=== PATIENT | female | born 1975 | race Caucasian/White ===

== ENCOUNTER 2016-08-27 13:35 | Observation (INO) | payer OTHER ==
[2016-08-27] MEDS ORDERED: TERBUTALINE SULFATE 1 MG/ML VIAL ONE (14:13)
--- NOTE | 2016-08-27 14:54 | OBPROG ---
OBG Labor Progress Note Assessment/Plan: Assessment:cat 1 fhr regular contractions terbutaline x1 repeated x1 unable to get iv for iv fluids will po hydrate ffn negative previous exam in the office closed thick high posterior cervical length in the office 2.69 Plan:terbutaline x1 and repeat 08/27/16 14:51 Subjective: Feeling regular contractions x 4 days. Denies laking , bleeding, and cramping. States feeling positive movement. - SVE Dilation (cm): 0 Effacement (%): 0 Station: -3 Oxytocin Orders Assessment - Pre-Induction/Augmentation Assessment Gestational Age: 31 week(s) and 6 day(s) ICD10 Worksheet Patient Problems: Problems Problem Status Onset contractions Acute
--- NOTE | 2016-08-27 15:43 | GHP ---
[f rep st] HISTORY AND PHYSICAL DATE OF ADMISSION: 08/27/2016 The patient is a 41-year-old 2, term 0, pre-term 1, A 0, L1. EDC is 10/23/2016. Patient is gestational age of 31-1/7 weeks. Patient comes into the office on 08/27/2016 with the complaint of regular contractions x4 days, "I think since Wednesday." States feeling positive movement. De nies leaking or bleeding. States cramping is regular. Patient was placed on the monitor in the off ice. Contractions were noted to be 3-4 minutes apart. Speculum exam was completed. FFN was colle dennis that has since been found to be negative. Cervical length was completed by ultrasound, 2.69 cm is what was found to be true. Patient was sent to Labor and Delivery for reassessment, monitoring, terbutaline, and fluids. Patient originally started coming to [facility] at 9 weeks and 2 days and has routinely been seen. MEDICAL HISTORY: Patient is hypothyroid, has a history of anxiety, history of cystitis, and history of pyelo at the age of 29. Patient has a history of asthma and has an extremely sensitive stomach. SURGICAL HISTORY: Laser cone biopsy at age 19, tonsillectomy at age 28, tubes in the ears as a chil d. Salmonella positive at age 15. ALLERGIES: Dairy, eggs, corn, and fish. SOCIAL HISTORY: Patient is . HISTORY: Previous delivery at 34 weeks in 2008: A male, 5 pounds 1 ounce, 34-5/7 weeks, 12 hours of labor. This was a planned home . Baby was in the NICU x2 weeks. Pr esent : Patient is AMA. PAST FAMILY HISTORY: Noncontributory. LABORATORY: Patient is A positive, antibody negative. RPR is nonreactive. Rubella is immune. Hep atitis is negative. HIV is negative. Triple screen was negative. TSH on original assessment for p regnancy was 2.48 and in the 3rd trimester, 2.21. Pap was ASCUS with negative HPV. Gonorrhea and c hlamydia were negative. AFP was negative. Verifi was negative. 1-hour GTT was within normal limit s. PHYSICAL ASSESSMENT: CONSTITUTIONAL: Patient is awake, alert, and oriented x3. LUNGS: Clear bila terally. ABDOMEN: Bowel sounds are positive in all 4 quadrants. EXTREMITIES: DTRs are 1+ bilater ally and no clonus. GI: Patient is eating a regular diet. Abdomen is soft on palpation in between contractions. Contractions on admit to Labor and Delivery were every 3-5 minutes. PLAN OF CARE: 1. Continuous monitoring. 2. Terbutaline q.20 minutes x3 if needed. 3. Oral hydration. 4. Plan for return to the office Wednesday or Wednesday as long as contractions are to nothing before di scharge. 5. Consult with Dr. Dena Barnes on plan of care. Plan of care was agreed upon. /[id number]/MODL
--- NOTE | 2016-08-27 17:46 | OBPROG ---
OBG Labor Progress Note Assessment/Plan: Assessment:cat 1 fhr irrgular contractions terbutaline x3 doses ffn negative previous exam in the office closed thick high posterior cervical length in the office 2.49 Plan:fu on wednesday in the office/ clint to go home 10 mg po q8h leaking bleeding regular pain 4-6 per hour hurting with the contractions. Verbalized understanding of need to be less active no intercourse verbalized understanding 08/27/16 14:51 08/27/16 17:42 Oxytocin Orders Assessment - Pre-Induction/Augmentation Assessment Gestational Age: 31 week(s) and 6 day(s) ICD10 Worksheet Patient Problems: Problems Problem Status Onset contractions Acute
== END 2016-08-27 17:51 | disposition home or self-care (01) ==
LOC: FLD 13:35
PROVIDERS: ADMIT Obstetrics & Gynecology; ATTEND Obstetrics & Gynecology
DX: O09.213 Supervision of pregnancy with history of pre-term labor, third trimester (principal); O09.523 Supervision of elderly multigravida, third trimester; Z3A.31 31 weeks gestation of pregnancy
CPT/HCPCS: G0378 ×2; J3105

== ENCOUNTER 2016-08-31 11:30 | Inpatient (IN) | payer OTHER ==
[2016-08-31] MEDS ORDERED: MAGNESIUM SULF 4 GM/WATER 100 ML BAG IV ONE (12:01)
[2016-08-31] MEDS ORDERED: MAGNESIUM SULF 20 GM/500 ML BAG IV ONE (12:01)
[2016-08-31] MEDS ORDERED: MAGNESIUM SULF 4 GM/WATER 100 ML IV ONE (12:02)
[2016-08-31] MEDS ORDERED: CALCIUM GLUC 10% 1 GM/10 ML VIAL ONE (12:02)
[2016-08-31] MEDS: LR 1,000 ML IV PRN (12:30)
--- NOTE | 2016-08-31 12:56 | OBPROG ---
OBG Labor Progress Note Assessment/Plan: Assessment: warm with mgso4 i feel like I am having an anxiety attack reassurance given continuing to contract q 3-4 denies feeling the contractions betamethasone 1st dose given clear liquids confirmed presentation in the office with us remains breech Plan:bedside commode or bedpan for now at patient request 08/31/16 12:54 Subjective: Denies feeling contractions. Cervical us with pressure shorter. Regular contractions on the monitor to labor and delivery from the office for mgso4 and betamethasone - SVE Dilation (cm): 1 Effacement (%): 80 Station: -2 - Physical Exam General Appearance: WD/WN, alert, no apparent distress Respiratory: chest non-tender, lungs clear, normal breath sounds Cardiac/Chest: regular rate, rhythm Abdomen: normal bowel sounds Extremities: normal range of motion, Estiven's sign (negative bilaterally) DTR- Lower Extremities: Knee (L): 1+ (no clonus) Skin: normal color, warm/dry Neuro/Psych: no motor/sensory deficits, alert, normal mood/affect, oriented x 3 Oxytocin Orders Assessment - Pre-Induction/Augmentation Assessment Gestational Age: 32 week(s) and 3 day(s) ICD10 Worksheet Patient Problems: Problems Problem Status Onset contractions Acute - ICD10 Problem Qualifiers (1) contractions
[2016-08-31] MEDS ORDERED: ALBUTEROL 60 PUFFS/8 GM MDI IH PRN (12:59)
[2016-08-31] MEDS: Mag Sulf 500 ML IV SCH ×2 (13:08→20:54)
[2016-08-31] MEDS: BETAMETHASONE IM SYRINGE IM SCH (13:14)
[2016-08-31 13:46] LABS: ADD DIFF? NO; ADD MORPH? NO; ADD SCAN? NO; ATYPICAL LYMPHOCYTE FLAG 0 (0-99); FRAGMENT RBC FLAG 0 (0-99); HEMATOCRIT 42.8 % (38.0-47.0); HEMOGLOBIN 14.8 g/dL (12.6-16.3); LEFT SHIFT FLG 0 (0-99); LIPEMIA HEMOLYSIS FLAG 90 (0-99); MEAN CELL HEMOGLOBIN 32.2 pg (27.9-34.1); MEAN CELL HEMOGLOBIN CONCENTR. 34.6 g/dL (32.4-36.7); MEAN CELL VOLUME 93.2 fL (81.5-99.8); MEAN PLATELET VOLUME 11.1 fL (8.7-11.7); PLATELET CLUMPS FLAG 0 (0-99); PLATELET COUNT 256 10^3/uL (150-400); RED BLOOD CELL COUNT 4.59 10^6/uL (4.18-5.33); RED CELL DISTRIBUTION WIDTH 12.7 % (11.5-15.2)
--- NOTE | 2016-08-31 13:57 | GHP ---
[f rep st] HISTORY AND PHYSICAL ADDENDUM TO PREVIOUSLY DICTATED REPORT HISTORY UPON ADMISSION: Previous H and P dictated by nurse truck leasing manager, Darling Penny CNM, has been reviewed. HISTORY OF PRESENTATION: The patient is a 41-year-old, G2, delivery 1, with current at 32 weeks and 1 day, with an estimated due date of , who has been admitted to Labor and Delivery for steroid course of betamethasone with magnesium sulfate while administering the steroids. The patient was noted to have regular contractions in the office with cervical change from prior exam done last week. The patient does have increased risk of delivery due to her prior vaginal in 2008 at 34 weeks and 5/7 days. The ultrasound in the office today also revealed the cervical thickness down to 1.5 cm after pressure. Cervix was 1 cm dilated. On exam, there was subjective increased effacement, with lower presenting part and the contractions were staying persistent every 4-7 minutes. The patient has received an additional 2 mg bolus of magnesium, as well as the rate increased to 3 g an hour. Contractions now for several hours have been imperceptible by the patient, and decreasing frequency on the toco. The patient is having good movement. heart rate monitoring category 1. The rest of medical history is noted in the previous history and physical. History of laser cone at age 19, as well as the previous delivery at 34 weeks and 5/7 days. The patient is hypothyroid, and takes levothyroxine. Laboratory history is all normal, with blood type A positive. The patient had a GBS culture done earlier today. The fibronectin will be able to be performed tomorrow afternoon, getting 24 hours after the last cervical exam today. Physical exam is reassuring , and the patient is tolerating the magnesium sulfate at this time, with great urine output. The patient's lungs are remaining clear. The DTRs are 1+ bilaterally. ASSESSMENT: Intrauterine at 32 weeks and 1 day, with labor. The patient is on magnesium sulfate now, with improvement in the contraction pattern. Betamethasone given mid day today, and repeat dose will be tomorrow. We will continue magnesium sulfate, and after several hours of stability we will decrease the rate to 2 g an hour. PLAN: Continue current magnesium and close observation until second [facility] . I have reviewed plan of care and discussed plan with patient. Plan has been collaborated with MINH Penny /[id number] Dictated By: Aspen Li MD [id number] [facility] ORIGINAL REPORT DATE OF ADMISSION: 08/31/2016 HISTORY OF PRESENT ILLNESS: The patient is a 2, term 0, 1, A0, L1, 41-year-old with an EDC of 10/23/2016, whose gestational age is 32-1/7 weeks today, who comes into the clinic for a routine check with continued regular contractions. Denies pain. Taking Procardia q.8 hours 10 mg for contractions. Denies leaking, bleeding today on 08/31/2016. States feeling positive movement. Placed on an NST in the office and contractions were q.3-4 minutes. The patient to labor and delivery for further assessment, as well as magnesium sulfate, betamethasone. On ultrasound today, with pressure cervix was 1.3 to 1.7 cm long, without pressure 2.8 cm long. The patient has been seen in the clinic with [facility] since 9 weeks and 2 days. MEDICAL HISTORY: Patient is hypothyroid, takes levothyroxine 50 mcg p.o. q. day. History of anxiety. asthma PREG HISTORY. Previous delivery at 34-5/7 weeks in 10/2008, a male who weighed 5 pounds 1 ounce, vaginally, 12 hours. SURGICAL HISTORY: Laser cone at age 19, tonsillectomy age 28, ear tubes as a child, salmonella age 15. ALLERGIES: Allergic to dairy, eggs, and shellfish. FAMILY HISTORY: Noncontributory. SOCIAL HISTORY: Patient has 1 other child, is . Denies drug history as well as smoking history. LABORATORY DATA: Patient is A positive, antibody negative. RPR is nonreactive. Rubella is immune. Hepatitis is negative. HIV is negative. Triage screen on 04/25/2016 was negative. Thyroid has been within normal limits. Past Pap was ASCUS with negative HPV. Gonorrhea and chlamydia were negative. AFP was negative. Verifi was negative. 1-hour GTT was within normal limits. PHYSICAL EXAMINATION: GENERAL: Patient is awake, alert, oriented x3. LUNGS: Clear bilaterally. ABDOMEN: Bowel sounds are positive in all 4 quadrants. EXTREMITIES: DTRs are 1+ with no clonus. Homans sign is negative. CHEST: The patient on magnesium sulfate, is complaining of pressure on her chest during bolus of 4 g of magnesium. PLAN OF CARE: Magnesium sulfate, betamethasone. Group beta strep was done in the office. Continuous monitoring and reassessment. /[id number]/MODL MTDD
[2016-08-31] MEDS ORDERED: MAGNESIUM SULF 2 GM/WATER 50 ML BAG IV ONE (16:23)
[2016-08-31] MEDS ORDERED: MAGNESIUM SULF 2 GM/WATER 50 ML IV ONE (17:00)
--- NOTE | 2016-08-31 17:28 | OBPROG ---
OBG Labor Progress Note Assessment/Plan: Assessment: warm with mgso4/ comfort measures to assist exam /-2 with greater force from presenting part this exam/ previous exam /-2 reassurance given continuing to contract q 3-4 denies feeling the contractions 2 gm loading now / increase mainline to 3gm clear liquids joe placed drinking clear fluid 1-[address] mosley on poc allergic to betadine betadine used to place joe clear water used to clean, chlorprep used to place joe benadryl 25 mg ivp to assist with allergic reaction Plan:joe, increased base of mgso4 to 3gm, 2 gm loading again 08/31/16 12:54 08/31/16 17:23 Subjective: Continuing to feel contractions. Intermittant relaxation of uterus and then returning to q2-3 minutes Objective: 08/31/16 13:20 Patient ABO/Rh A POSITIVE 08/31/16 13:20 - SVE Dilation (cm): 1 Effacement (%): 100 Station: -2 Oxytocin Orders Assessment - Pre-Induction/Augmentation Assessment Gestational Age: 32 week(s) and 3 day(s) ICD10 Worksheet Patient Problems: Problems Problem Status Onset contractions Acute - ICD10 Problem Qualifiers (1) contractions
[2016-08-31] MEDS ORDERED: ZOLPIDEM TARTRATE 5 MG TAB PO PRN (19:48)
[2016-08-31] MEDS ORDERED: diphenhydrAMINE 25 MG CAP PO PRN (21:34)
[2016-09-01] MEDS ORDERED: ONDANSETRON 4 MG/2 ML VIAL ONE (04:05)
[2016-09-01] MEDS: ONDANSETRON 4 MG/2 ML VIAL IVP PRN ×2 (04:21→08:40)
[2016-09-01] MEDS: Mag Sulf 500 ML IV SCH (05:33)
[2016-09-01] MEDS: LR 1,000 ML IV PRN (05:35)
[2016-09-01] MEDS ORDERED: LEVOTHYROXINE 50 MCG TAB PO SCH (06:00)
[2016-09-01] MEDS: LEVOTHYROXINE 25 MCG TAB PO SCH (06:36)
--- NOTE | 2016-09-01 06:47 | OBPROG ---
OBG Labor Progress Note Assessment/Plan: Assessment: vomiting decreased urine out put 50cc most hours at 0300 30cc bolus and increase of fluids ordered at that time continuing to contract irregularly denies pain with them mgso4 decreased to 2gm per hour at 0030 mgso4 level 7.7 clear liquids decreased urine output consulted dr. mosley on poc Plan:2nd betamethasone dose today at 1300, ffn at 1630, continue mgso4 through the 2nd dose of betamethasone, increased lr to 100cc per hour, bolus of fluids one time of 250cc. , zofran for nausea and vomiting, accurate In take and output today 08/31/16 12:54 08/31/16 17:23 09/01/16 06:39 Subjective: Vomiting, noted decreased urine output, decreased ability to drink water and other po fluids. Objective: 08/31/16 13:20 Patient ABO/Rh A POSITIVE 08/31/16 13:20 Oxytocin Orders Assessment - Pre-Induction/Augmentation Assessment Gestational Age: 32 week(s) and 3 day(s) ICD10 Worksheet Patient Problems: Problems Problem Status Onset contractions Acute - ICD10 Problem Qualifiers (1) contractions
--- NOTE | 2016-09-01 08:19 | OBPROG ---
OBG Labor Progress Note Assessment/Plan: Assessment: 41 y/o @ 32 4/7 wks with h/o PTD at 34 weeks with PTCs Plan: Pt is stable at this time Currently on Mag sulfate, will discontinue and start Procardia To remove joe this am Advance diet to regular SCDs while in bed s/p BTMZ x1, second dose at 1300 today FFN to be collected today at 1600 FHTs- Cat I tracing Will cont to closely monitor 09/01/16 08:15 Subjective: Pt seen and examined. Feeling much better than last night. Some nausea, no vomiting. States she feels tightness, but no pain with ctx's and they are infrequent. Denies any LOF or VB. Good FM noted. Joe in place. SCDs on-denies any calf tenderness. Objective: 08/31/16 13:20 Patient ABO/Rh A POSITIVE 08/31/16 13:20 [place]or Current Contraction Pattern: Irregular FHR (bpm): 125 FHR Pattern Variability: Moderate FHR Category: 1 Membranes: Intact - Physical Exam General Appearance: WD/WN, alert, no apparent distress Respiratory: lungs clear, normal breath sounds Cardiac/Chest: regular rate, rhythm Abdomen: non-tender, soft (Gravid) Extremities: non-tender, normal inspection DTR- Lower Extremities: Plantar (R): 1+, Plantar (L): 1+ Skin: normal color, warm/dry Neuro/Psych: alert, normal mood/affect, oriented x 3 Oxytocin Orders Assessment - Pre-Induction/Augmentation Assessment Gestational Age: 32 week(s) and 3 day(s) ICD10 Worksheet Patient Problems: Problems Problem Status Onset contractions Acute
[2016-09-01] MEDS: NIFEdipine 10 MG CAP PO SCH ×3 (08:39→21:21)
[2016-09-01] MEDS ORDERED: CALCIUM CARBONATE 500 MG CHEWABLE TAB PO ONE (11:26)
[2016-09-01] MEDS: CALCIUM CARBONATE 500 MG CHEWABLE TAB PO PRN ×3 (11:38→21:21)
[2016-09-01] MEDS: BETAMETHASONE IM SYRINGE IM SCH (13:30)
[2016-09-01] MEDS ORDERED: CEPACOL LOZENGE PO PRN (20:35)
[2016-09-01] MEDS ORDERED: ACETAMINOPHEN 500 MG TAB PO PRN (20:35)
[2016-09-01] MEDS ORDERED: ZOLPIDEM TARTRATE 5 MG TAB PO PRN (20:57)
[2016-09-02] MEDS: CALCIUM CARBONATE 500 MG CHEWABLE TAB PO PRN (02:58)
[2016-09-02] MEDS: NIFEdipine 10 MG CAP PO SCH ×3 (02:59→14:32)
[2016-09-02] MEDS: LEVOTHYROXINE 25 MCG TAB PO SCH (05:06)
--- NOTE | 2016-09-02 12:02 | OBPROG ---
OBG Labor Progress Note Assessment/Plan: Assessment: 41 you @ 32 5/7 weeks with arrested contractions/labor s/p bmz x 2 procardia gbs negative breech Plan: precautions and kick counts procardia discharge instructions 09/02/16 11:59 Subjective: patient is doing well. long discussion about hospital course so far, contractions and follow up plan. contractions still happening but mild. 4 or less in an hour. discussed this is likely her new baseline. patient is hydrating well. denies loss of fluid of vaginal bleeding. good movement. Objective: 08/31/16 13:20 Patient ABO/Rh A POSITIVE 08/31/16 13:20 - Physical Exam General Appearance: WD/WN, alert, no apparent distress Respiratory: chest non-tender, lungs clear, normal breath sounds Cardiac/Chest: normal peripheral pulses, regular rate, rhythm Abdomen: normal bowel sounds, other (gravid, non tender) Extremities: normal range of motion, non-tender, normal inspection, normal capillary refill Skin: normal color, warm/dry Neuro/Psych: no motor/sensory deficits, alert, normal mood/affect, oriented x 3 Oxytocin Orders Assessment - Pre-Induction/Augmentation Assessment Gestational Age: 32 week(s) and 3 day(s) ICD10 Worksheet Patient Problems: Problems Problem Status Onset contractions Acute
== END 2016-09-02 15:20 | disposition home or self-care (01) | DRG 778 ==
LOC: FLD 11:30
PROVIDERS: ADMIT Advanced Practice Midwife; ATTEND Advanced Practice Midwife
DX: O60.03 Preterm labor without delivery, third trimester (principal); Z3A.32 32 weeks gestation of pregnancy; O09.213 Supervision of pregnancy with history of pre-term labor, third trimester; O09.523 Supervision of elderly multigravida, third trimester
CPT/HCPCS: J0610; J0702; J1200; J2405; J3475

== ENCOUNTER 2016-09-10 22:12 | Observation (INO) | payer OTHER ==
[2016-09-10] MEDS ORDERED: ZOLPIDEM TARTRATE 5 MG TAB PO PRN (23:30)
[2016-09-11] MEDS ORDERED: BETAMETHASONE IM SYRINGE IM SCH
[2016-09-11] MEDS ORDERED: NIFEdipine 10 MG CAP PO SCH
[2016-09-11] MEDS: NIFEdipine 10 MG CAP PO SCH ×2 (05:33→09:23)
[2016-09-11] MEDS ORDERED: LEVOTHYROXINE 25 MCG TAB PO SCH (06:45)
--- NOTE | 2016-09-11 09:11 | GHP ---
[f rep st] HISTORY AND PHYSICAL DATE OF ADMISSION: 09/10/2016 ADMITTING DIAGNOSES: 1. Intrauterine at 33 weeks and 6 days. 2. contractions. HISTORY OF PRESENT ILLNESS: Patient is a 41-year-old 2, para 0-1-0-1 at 33 and 6/7 weeks with estimated due date 10/23/2016, by last menstrual period 01/17/2016 and confirmed by 1st trimester ultrasound at 9 weeks, who presents to Labor and Delivery with complaints of worsening contractions, now having 9-12 contractions over the last hour. The contractions are becoming more painful. The patient denies any leakage of fluid or vaginal bleeding. States there is good movement. Patient does have a history of delivery at 34 weeks, and is currently on weekly Kinmundy injections. The patient has good care at [facility] and presented in her 1st trimester. is complicated by advanced maternal age. All genetic testing is negative. The patient has history of cervical cone laser as well as a delivery at 34 weeks. Cervical lengths have been stable up until about 32 weeks , where cervix was shortened to 1.9 cm. Patient started having increased contractions despite being on Procardia and about 10 days ago, was sent over to Labor and Delivery. She was on mag sulfate for 24 hours, received 2 doses of betamethasone. fibronectin was negative, and the patient was found to be 1 cm dilated on exam. The fetus remains in the breech presentation. PAST OBSTETRIC HISTORY: In October 2008, she delivered a viable male infant at 34 and 5/7 weeks, weighing 5 pounds 1 ounces. She had contractions weeks prior to the delivery. GYNECOLOGIC HISTORY: Menarche at age 14. Cycles are every 28-30 days x3-4 days. Last menstrual period 01/17/2016. The patient has a history of abnormal Pap smears and was treated with laser cone of her cervix at age 19. The patient denies any exposure to any other sexually transmitted diseases. PAST MEDICAL HISTORY: Hypothyroidism, asthma, anxiety. PAST SURGICAL HISTORY: Laser cone of her cervix age 19, tonsils age 28, and tubes in her ear as a child. FAMILY HISTORY: Noncontributory. MEDICATIONS: Levothyroxine 25 mcg, vitamins, fish oil, B12, magnesium , vitamin D, and Procardia. ALLERGIES: Iodine, sulfa. SOCIAL HISTORY: Patient is . Lives with her and their son. She denies alcohol, tobacco, illicit drug use. LABS: A positive, antibody negative. RPR nonreactive. Rubella immune. Hepatitis B surface antigen negative. HIV negative. Cystic fibrosis negative April 2016. TSH, free T4, free T3: 2.48, 1.1, 3.4 7. Urine culture negative. Pap in this revealed ASCUS, HPV was negative. Gonorrhea, chlamydia cultures negative. AFP negative. Verifi negative. H and H 13 and 38.5. 1-hour Glucola 99. GBS is negative. REVIEW OF SYSTEMS: 10-point review of systems negative except for pertinent positives noted in HPI. PHYSICAL EXAMINATION: VITAL SIGNS: On admission, vital signs are stable. The patient is afebrile. GENERAL: Well nourished, well developed female. Alert and oriented x3. CARDIOVASCULAR: Regular rate and rhythm. LUNGS: Clear to auscultation bilaterally. ABDOMEN: Gravid, soft, nontender, nondistended. EXTREMITIES: Normal to inspection without edema or calf tenderness. PELVIC: She was found to still be 1 cm dilated, 75% effaced, -2 station; intact. heart tones on the monitor reveals a Category 1 strip; baseline of 140 beats per minute, positive accels, no decels, moderate variability. On Kirkpatrick, she is christine anywhere from 3-7 minutes. ASSESSMENT: Patient is a 41-year-old 2, para 0-1-0-1 at 33 and 6/7 weeks, who presents to Labor and Delivery with contractions. PLAN: 1. Admit to Labor and Delivery for observation. 2. Will increase Procardia to 20 mg p.o. q.4 hours. 3. Consulted with M and they agree with additional steroids, so first dose given upon admission and will repeat in 24 hours. 4. fibronectin was not done, the most recent one was negative less than 2 weeks ago. 5. Will continue to expectantly manage. /[id number]/MODL MTDD
--- NOTE | 2016-09-11 11:35 | OBPROG ---
OBG Labor Progress Note Assessment/Plan: Assessment: 41 [id number] @ 34 weeks today with h/o PTD and recurrent pre-term contractions Plan: Pt is symptomatically improved on increased Procardia 20 mg Q 4 hours now. Her cervical exam remains unchanged and her ultrasound findings are reassuring. Baby remains breech. I feel she is stable now to d/c home with precautions, Procardia 20 mg Q 4 hours, and scheduled follow-up @ [facility]. She received a "rescue" dose of BMZ last evening, but I feel that she received her full course 10 days ago and it is not necessary to keep her in the hospital for the second dose this course. 09/11/16 11:37 Subjective: Pt is feeling better this am. She still continues to have mild contractions 4- 7 x per hour. She reports 03/27 to be "painful." She reports good FM, but he is still breech. No LOF, VB or other symptoms. Objective: Pt had an ultrasound today because she was measuring S<D in the office yesterday. Fetus is breech, Cx measures 3.4 cm, EFW 2305 g 51% LOBITO 12.3, MVP 4.0 - SVE Dilation (cm): 1 Effacement (%): Less than 50 Station: -2 [place] Current Contraction Pattern: Irregular FHR (bpm): 130 FHR Pattern Variability: Moderate FHR Category: 1 Membranes: Intact Oxytocin Orders Assessment - Pre-Induction/Augmentation Assessment Gestational Age: 33 week(s) and 6 day(s) ICD10 Worksheet Patient Problems: Problems Problem Status Onset contractions Acute
== END 2016-09-11 13:00 | disposition home or self-care (01) ==
LOC: FLD 22:12
PROVIDERS: ADMIT Obstetrics & Gynecology; ATTEND Obstetrics & Gynecology
DX: O60.03 Preterm labor without delivery, third trimester (principal); O09.523 Supervision of elderly multigravida, third trimester; Z3A.33 33 weeks gestation of pregnancy
CPT/HCPCS: G0378; J0702

== ENCOUNTER 2016-09-29 12:20 | Inpatient (IN) | payer OTHER ==
[2016-09-29] MEDS ORDERED: CITRIC ACID/SODIUM CITRATE 30 ML UDCUP PO ONE (12:51)
[2016-09-29] MEDS ORDERED: LR 500 ML IV ONE (12:51)
[2016-09-29] MEDS ORDERED: LR 1,000 ML IV SCH (13:00)
[2016-09-29] MEDS ORDERED: D5W LR 1,000 ML IV SCH (13:00)
[2016-09-29 13:40] LABS: % IMMATURE GRANULYOCYTES 0.7 % (0.0-1.1); ABSOLUTE IMMATURE GRANULOCYTES 0.08 10^3/uL (0.00-0.10); ADD DIFF? NO; ADD MORPH? NO; ADD SCAN? NO; ATYPICAL LYMPHOCYTE FLAG 0 (0-99); FRAGMENT RBC FLAG 0 (0-99); HEMOGLOBIN 14.3 g/dL (12.6-16.3); LEFT SHIFT FLG 0 (0-99); LIPEMIA HEMOLYSIS FLAG 90 (0-99); MEAN CELL HEMOGLOBIN 32.1 pg (27.9-34.1); MEAN CELL HEMOGLOBIN CONCENTR. 34.9 g/dL (32.4-36.7); MEAN CELL VOLUME 92.1 fL (81.5-99.8); MEAN PLATELET VOLUME 11.9 fL (8.7-11.7); PLATELET CLUMPS FLAG 10 (0-99); PLATELET COUNT 230 10^3/uL (150-400); RED BLOOD CELL COUNT 4.45 10^6/uL (4.18-5.33); RED CELL DISTRIBUTION WIDTH 12.5 % (11.5-15.2)
[2016-09-29] MEDS ORDERED: CEFAZOLIN 2 GM/DEXTROSE/100 ML BAG IV ONE (13:47)
[2016-09-29] MEDS ORDERED: OXYTOCIN/RINGERS LACTATE 20 UNIT/1,000 ML BAG IV ONE (13:48)
[2016-09-29] MEDS ORDERED: MISOPROSTOL 200 MCG TAB ONE (13:48)
[2016-09-29] MEDS ORDERED: ceFAZolin 2 GM/DEXTROSE 100 ML IV ONE (13:53)
[2016-09-29] MEDS ORDERED: fentaNYL 100 MCG/2 ML INJ ONE (14:07)
[2016-09-29] MEDS ORDERED: DEXAMETHASONE 4 MG/ML VIAL ONE ×2 (14:32)
[2016-09-29] MEDS ORDERED: ONDANSETRON 4 MG/2 ML VIAL ONE ×2 (14:41→14:42)
[2016-09-29] MEDS ORDERED: OXYTOCIN 100 UNITS/10 ML VIAL ONE (14:41)
[2016-09-29] MEDS ORDERED: PHENYLEPHRINE HCL 100 MCG/ML SYR ONE ×2 (14:41→15:31)
--- NOTE | 2016-09-29 15:28 | GHP ---
[f rep st] PREOP HISTORY AND PHYSICAL DATE OF ADMISSION: 09/29/2016 HISTORY UPON ADMISSION: The patient is a 41-year-old, G2, 1, at 36 weeks and 4 days with an estimated due date of 10/23/2016, who is sent over to Labor and Delivery from the office with complaints of increasing contractions and cervical change from 1 cm last to now 3 cm, 80% effaced, at -1 station. The patient has continued to have contractions here on Labor and Delivery, and due to the labor, we will proceed with section due to breech presentation. The patient's has been complicated with a history of delivery at 34 weeks with her first child. The patient has used 17 OHP injections and had her last one last week. The patient also has had increased contraction and was on Procardia and stopped those doses last . Currently the patient denies any bleeding or rupture of membranes. She is having good movement. The patient has been advised as to the risks and benefits of section and signed the consent form. CARE: The patient has been with [facility] since 9 weeks' gestation. The patient has had high anxiety through the due to the delivery last time. She also had an irritable uterus with a lot of contractions with her first . The patient was noted to have cervical length shortening at the end of August, at which time she was admitted to the hospital and had her betamethasone doses x2. The patient was discharged home and received Procardia, taking 10 mg to 20 mg every 6-8 hours. Her fibronectin at that time was negative. LABS: Maternal blood type A positive with negative antibody screen. RPR nonreactive. Rubella immune. Hepatitis B surface antigen negative. HIV negative. Cystic fibrosis, SMA, fragile X all negative. Thyroid testing has been normal through the . Urinalysis and culture negative. Pap smear with a history of positive HPV and Pap smear in was ASCUS. Gonorrhea and chlamydia were negative. Verifi testing was normal and AFP testing was negative. One-hour Glucola was normal. GBS test at 32 weeks was negative. PAST MEDICAL HISTORY: The patient has hypothyroidism and has been on low-dose thyroid through the . Levels have been checked and have been in the normal range. The patient has had abnormal Pap smears and had a laser cervical conization at age 19. The patient has had HPV and atypical cells since then, but no higher dysplasia. History of anxiety but the patient denies depression after her first. The patient has a history of mild asthma and uses albuterol p.r.n. PAST SURGICAL HISTORY: Laser conization of the cervix at age 19, odontectomy age 28, tubes in her ears as a child. PAST OBSTETRIC HISTORY: In October 2008, a viable male at 5 pounds 1 ounce at 34 weeks and 5 days vaginally without anesthesia after 12 hours of labor. The patient reported contractions for weeks prior to the delivery that were not addressed by her playground aide. baby was in NICU for 2 wks ALLERGIES: The patient has an anaphylactic reaction to iodine, hives reaction to sulfa, GI upset with eggs and corn. CURRENT MEDICATIONS: The patient is on vitamins as well as levothyroxine at 25 mcg a day. Patient was on 20 mg of Procardia every 4 hours up to last week. The patient is also beginning weekly injections of 17 OHP, which stopped last week. Betamethasone was given to the patient at the end of August during a hospitalization for the contractions. SOCIAL HISTORY: The patient has just finished nursing school. She is . Lives with her and son, Joo. The patient is a nonsmoker. No alcohol or drug use. PHYSICAL EXAM: GENERAL: Upon admission, the patient is a well-developed, well- nourished white female in some distress with contractions and breathing through them. VITAL SIGNS: The patient is afebrile and has normal vital signs. See nursing documentation for full details. LUNGS: Clear to auscultation bilaterally. CARDIOVASCULAR: Regular rate and rhythm. ABDOMEN: Reveals a breech presentation baby. Gravid uterus with category 1 heart tone monitoring with a baseline in the 130s. Great accelerations and no decelerations. Good variability. Contractions every 4-5 minutes. EXTREMITIES : Nontender. No edema. ASSESSMENT: 1. Intrauterine at 36 weeks and 4 days with breech presentation in early labor. 2. History of hypothyroidism, on medication. 3. History of anxiety. 4. History of cervical dysplasia, status post laser 20 years ago. 5. History of delivery with her first. 6. Status post betamethasone treatment with negative GBS culture 1 month ago. PLAN: Will proceed with section for delivery. The patient has signed the surgical consent form. The patient will receive Ancef preoperatively. /[id number]/MODL MTDD
[2016-09-29] MEDS ORDERED: SCOPOLAMINE HYDROBROMIDE 1.5 MG PATCH TD ONE ×2 (15:29→19:30)
[2016-09-29] MEDS ORDERED: ACETAMINOPHEN 325 MG TAB PO PRN (15:49)
--- NOTE | 2016-09-29 16:25 | PREANESOB ---
Obstetric Pre-Anesthesia Info - General Info Proposed Procedure: C Section. : 2 Para: 1 WBD: 36 - Info Status: Premature Monitors: External FHR Baseline (bpm): 125 FHR Pattern: Reassuring - Labor Status Section History: Primary Indications for Current Section: Breech Labor Epidural: No Anesthesia ROS: Prior general anesthesia. Hypothyroid. Allergies/Adverse Reactions: Allergy/AdvReac Type Severity Reaction Status Date / Time iodine Allergy Severe Anaphylaxis Verified 09/29/16 13:54 bacitracin Allergy Verified 08/31/16 19:53 [From Triple Antibiotic] corn [[place]] Allergy Verified 06/16/13 13:13 egg Allergy Verified 06/16/13 13:13 neomycin Allergy Verified 08/31/16 19:53 [From Triple Antibiotic] polymyxin B Allergy Verified 08/31/16 19:53 [From Triple Antibiotic] Shellfish *RETIRED-11/16/11 Allergy Verified 07/14/11 17:32 [Shellfish] Sulfa (Sulfonamide Allergy Verified 07/14/11 17:32 Antibiotics) Home Medications: Medication Instructions Recorded Albuterol [Proventil Inhaler HFA 07/14/11 (*)] Hydroxyprogesterone Caproate 250 mg IM Q7D 08/31/16 [[place]] Levothyroxine [Synthroid 50 mcg 25 mcg PO DAILY06 08/31/16 (*)] Vit27&Calcium/Iron/FA 1 each PO DAILY 08/31/16 [] NIFEdipine [Procardia 10 mg (*)] 10 mg PO Q6H #120 cap 09/02/16 NIFEdipine [Procardia 10 mg (*)] 20 mg PO Q4H #120 cap 09/11/16 Visit Medications: Generic Name Dose Route Start Last Admin Trade Name Freq PRN Reason Stop Dose Admin Acetaminophen 325 - 650 mg 09/29/16 15:49 Tylenol PO 03/28/17 15:48 Q3HRS PRN Pain, Mild Hydrocodone Bitart/Acetaminophen 1 - 2 tab 09/29/16 15:49 [place] 5/325 PO 10/09/16 15:48 Q4HRS PRN Pain, Moderate Dextrose/Lactated Ringer's 1,000 mls @ 100 mls/hr 09/29/16 13:00 D5w Lr IV 03/28/17 12:59 CONT WES Ibuprofen 600 mg 09/30/16 18:00 Motrin PO 03/29/17 17:59 Q6HRS PRN Inflammation Ketorolac Tromethamine 30 mg 09/29/16 18:00 Toradol IVP 09/30/16 12:01 Q6HRS [facility] Levothyroxine Sodium 50 mcg 09/30/16 06:00 Synthroid PO 03/29/17 05:59 DAILY AT 6AM [facility] Discontinued Medications Generic Name Dose Route Start Last Admin Trade Name Vanita PRN Reason Stop Dose Admin Cefazolin Sodium/Dextrose Confirm 09/29/16 13:47 Ancef 2 Gm (Premix) Administered 09/29/16 13:48 Dose 2 gm IV .STK-MED ONE Citric Acid/Sodium Citrate 30 ml 09/29/16 12:51 09/29/16 14:06 Bicitra PO 09/29/16 12:52 Not Given ONCALL ONE Dexamethasone Confirm 09/29/16 14:32 Decadron Injection Administered 09/29/16 14:33 Dose 4 mg .ROUTE .STK-MED ONE Dexamethasone Confirm 09/29/16 14:32 Decadron Injection Administered 09/29/16 14:33 Dose 4 mg .ROUTE .STK-MED ONE Fentanyl Confirm 09/29/16 14:07 Sublimaze Administered 09/29/16 14:08 Dose 100 mcg .ROUTE .STK-MED ONE Lactated Ringer's 500 mls @ 0 mls/hr 09/29/16 12:51 Lr IV 09/29/16 12:52 ONCE ONE As Directed Lactated Ringer's 1,000 mls @ 125 mls/hr 09/29/16 13:00 Lr IV 03/28/17 12:59 CONT WES Cefazolin Sodium/Dextrose 100 mls @ 200 mls/hr 09/29/16 13:53 09/29/16 14:06 Ancef 2 Gm (Premix) IV 09/29/16 14:22 100 mls ONCALL ONE Administration Protocol Misoprostol Confirm 09/29/16 13:48 Cytotec Administered 09/29/16 13:49 Dose 1,000 mcg .ROUTE .STK-MED ONE Morphine Sulfate 2 mg 09/29/16 13:45 Morphine 09/29/16 13:46 ONCE ONE Ondansetron HCl Confirm 09/29/16 14:41 Zofran Administered 09/29/16 14:42 Dose 4 mg .ROUTE .STK-MED ONE Ondansetron HCl Confirm 09/29/16 14:42 Zofran Administered 09/29/16 14:43 Dose 4 mg .ROUTE .STK-MED ONE Oxytocin Confirm 09/29/16 14:41 Pitocin Administered 09/29/16 14:42 Dose 100 units .ROUTE .STK-MED ONE Oxytocin/Lactated Ringer's Confirm 09/29/16 13:48 Pitocin 20 Units/Lr (Premix) Administered 09/29/16 13:49 Dose 20 unit IV .STK-MED ONE Phenylephrine HCl Confirm 09/29/16 14:41 Neosynephrine Administered 09/29/16 14:42 Dose 1,000 mcg .ROUTE .STK-MED ONE Phenylephrine HCl Confirm 09/29/16 15:31 Neosynephrine Administered 09/29/16 15:32 Dose 1,000 mcg .ROUTE .STK-MED ONE Scopolamine HBr Confirm 09/29/16 15:29 Transderm-Scop Administered 09/29/16 15:30 Dose 1.5 mg TD .STK-MED ONE - Anesthesia History Response to Local Anesthetics: Normal Anesthesia & Operative History: No Prior Problems - Social History Substance Use/Abuse: Denies - Focused Exam Blood Pressure: 125/81 Heart Rate: 62 Height/Weight (Nursing): Height 172.72 cm Weight 80.286 kg Physical Exam: Within normal limits. ASA Status: II Labs: 09/29/16 13:10 Patient ABO/Rh A POSITIVE 09/29/16 13:10 - Plan Anesthetic Plan: SAB Consent Signed and on Chart: Yes Patient/Guardian Understands and Agrees to Plan: Yes Urgent/Emergent Case: Gabriella gutierrez completed preop but documented later for safe timely pt care
[2016-09-29] MEDS ORDERED: ONDANSETRON 4 MG/2 ML VIAL IVP PRN (16:26)
[2016-09-29] MEDS ORDERED: NALOXONE HCL 0.4 MG/ML INJ IVP PRN (16:26)
--- NOTE | 2016-09-29 16:26 | POSTANESTH ---
Post Anesthetic Evaluation Cardiovascular Status: Normal, Stable Respiratory Status: Normal, Stable, Similar to Pre-op Cond. Level of Consciousness/Mental Status: Can Participate in Eval, Alert and Oriented Pain Control: Adequate, Prn Tx Ordered Nausea/Vomiting Control: Adequate, Prn Tx Ordered Complications Possibly Related to Anesthesia: None Noted
[2016-09-29] MEDS: KETOROLAC 30 MG/1 ML SDV IVP SCH ×2 (17:44→23:37)
--- NOTE | 2016-09-29 19:02 | OBDEL ---
Info Type: Primary GBS+: No Indications for Delivery: Spontaneous Labor (breech presentation) Vaginal Delivery - Labor and Delivery Onset of Contractions Date: 09/28/16 Onset of Contractions Time: 18:00 Operative Report - Delivery Pre-op Diagnoses: IUP at 36w4d, labor, breech Post-op Diagnoses: same Nulliparous Prior to Delivery: Yes Presentation at Delivery: Breech Procedure: Unscheduled, Low Transverse Surgeon: Aspen Li Sales Specialist: Marissa Wynne () Anesthesiologist: Raman Li L&Chucho Analgesia/Anesthesia Type: Spinal Complications: None Findings: baby in [place] breech position - at hysterotomy - the breech presented first - delivery uncomplicated - baby immediately crying and vigorous. clear fluid. additional figure of eight stitch at left angle for hemostatis. no extensions. uterus contracted well after delivery. IV Fluid (ml): 2,000 EBL: 800 [place] Data [place] Delivery Date: 09/29/16 Delivery Time: 14:50 VICENTE: 10/23/16 Gestational Age: 36 week(s) and 4 day(s) Sex of Infant: Male [place] Weight (gm): 2744 kg Score (1 Min): 8 Score (5 Min): 9 ICD10 Worksheet Patient Problems: Problems Problem Status Onset Breech delivery Acute labor Acute Status post primary low transverse section Acute contractions Acute
--- NOTE | 2016-09-29 19:07 | OBGCSDC ---
General Delivery Information - General Info : 2 Para: 2 Delivery Physician/CNM: Aspen Li Mason Tender: Marissa Wynne () Admission Date: 09/29/16 Labs: Patient ABO/Rh A POSITIVE 09/29/16 13:10 Hct 41.0 % (38.0-47.0) 09/29/16 13:10 Vaginal - Diagnosis Presentation at Delivery: Breech - Operations/Procedures L&D Analgesia/Anesthesia Type: Spinal - Delivery Number of Prior Sections: 0 Indications for Current Section: Breech, Other (Specify) ( labor ) Type: Primary Surgical Procedures: Unscheduled, Low Transverse Intra-op Complications: None EBL: 800 L&D Analgesia/Anesthesia Type: Spinal - Hospital Course Antepartum: h/o at 34 wks. Pt has been on 17OHP, and was admitted for cervical shortening end of August for BMZ and begun on procardia - up to 20mg q 4 hrs, stopped last week. GBS - end August. Intrapartum: c was 3/80/-1 feet at os, with q 4-5 min ctxns. Set up for primary c/s Data [place] Delivery Date: 09/29/16 Delivery Time: 14:50 VICENTE: 10/23/16 Gestational Age: 36 week(s) and 4 day(s) Sex of : Male Weight (gm): 2744 kg Score (1 Min): 8 Score (5 Min): 9
[2016-09-30] MEDS: KETOROLAC 30 MG/1 ML SDV IVP SCH ×2 (05:42→12:20)
[2016-09-30] MEDS: LEVOTHYROXINE 25 MCG TAB PO SCH (05:43)
[2016-09-30] MEDS ORDERED: LEVOTHYROXINE 50 MCG TAB PO SCH (06:00)
--- NOTE | 2016-09-30 08:23 | OBPP ---
Progress Note Assessment/Plan: Assessment: 1) s/p 1 LTCS secondary to breech POD # 1 - pt is stable 2) Anemia - pt is asymptomatic Plan: Continue routine pp care Encourage ambulation Dressing to be removed this afternoon Pt may shower Will start iron BID Plan for d/c home in 24-48 hrs 09/30/16 08:23 Subjective: Pt seen and examined. Doing well with no complaints. Pain is well controlled with Toradol. She has been OOB twice, yuniel diet, joe in place, passing flatus. No BM yet. Moderate lochia. Denies any f/c/n/v/CP or SOB. BF well so far. Objective: 09/30/16 06:00 Patient ABO/Rh A POSITIVE 09/29/16 13:10 Temp Pulse Resp BP Pulse Ox 36.8 C 54 L 18 112/65 95 09/30/16 04:15 09/30/16 06:00 09/30/16 06:00 09/30/16 04:15 09/30/16 06:00 Uterine Position/Fundal Height: Umbilicus -2 Uterine Tone: Firm Physical Exam - Physical Exam General Appearance: WD/WN, alert, no apparent distress Respiratory: lungs clear, normal breath sounds Cardiac/Chest: regular rate, rhythm Abdomen: normal bowel sounds, non-tender, soft, flatus (+), incision (C/D/I, well approximated with dressing in place), dressing (C/D/I) Extremities: non-tender, normal inspection Skin: normal color, warm/dry Neuro/Psych: alert, normal mood/affect, oriented x 3
[2016-09-30] MEDS: IRON POLYSAC/IRON HEME 28 MG TAB PO SCH ×2 (15:24→22:39)
[2016-09-30] MEDS: HYDROCODONE/APAP 5/325 TAB PO PRN ×3 (16:49→22:40)
[2016-09-30] MEDS: IBUPROFEN 600 MG TAB PO PRN (18:00)
[2016-09-30] MEDS ORDERED: PATCH REMOVAL 1 EA PATCH TD ONE (19:31)
[2016-09-30] MEDS: DOCUSATE SODIUM 100 MG CAP PO SCH (22:39)
[2016-10-01] MEDS: IBUPROFEN 600 MG TAB PO PRN ×4 (00:14→19:20)
[2016-10-01] MEDS: HYDROCODONE/APAP 5/325 TAB PO PRN ×6 (03:00→23:20)
[2016-10-01] MEDS: LEVOTHYROXINE 25 MCG TAB PO SCH (06:10)
[2016-10-01] MEDS: IRON POLYSAC/IRON HEME 28 MG TAB PO SCH ×2 (09:25→21:31)
[2016-10-01] MEDS: DOCUSATE SODIUM 100 MG CAP PO SCH ×2 (09:25→22:00)
[2016-10-01] MEDS ORDERED: BISACODYL 10 MG SUPP PR PRN (12:57)
[2016-10-01] MEDS ORDERED: POLYETHYLENE GLYCOL 3350 17 GM PKT PO PRN (12:57)
[2016-10-01] MEDS ORDERED: MAGNESIUM HYDROXIDE 30 ML UDCUP PO PRN (12:57)
[2016-10-01] MEDS ORDERED: LACTULOSE 20 GM/30 ML UDCUP PO PRN (12:57)
--- NOTE | 2016-10-01 13:04 | OBPP ---
Progress Note Assessment/Plan: Assessment: 41 y/o POD #2 s/p LTCS secondary to breech 36 week doing well. Plan: I ordered bowel protocol and an abdominal binder today. Encourage ambulation, and BM today. support. 10/01/16 13:05 Subjective: Pt is doing better today. She still has pain while ambulating etc, but it is improved with [place] and Ibuprofen. She is ambulating and voiding without difficulty and took a shower this am. Breast feeding and baby is doing well. Objective: 09/30/16 06:00 Patient ABO/Rh A POSITIVE 09/29/16 13:10 Temp Pulse Resp BP Pulse Ox 36.8 C 63 16 119/76 97 10/01/16 08:50 10/01/16 08:50 10/01/16 08:50 10/01/16 08:50 10/01/16 08:50 Uterine Position/Fundal Height: Umbilicus -2 Uterine Tone: Firm Physical Exam - Physical Exam General Appearance: WD/WN, alert, no apparent distress Neck: non-tender, full range of motion, supple Respiratory: chest non-tender, lungs clear, normal breath sounds Cardiac/Chest: regular rate, rhythm Abdomen: normal bowel sounds, incision (c/d/i) Extremities: swelling (tr), Estiven's sign (neg)
[2016-10-01] MEDS: SENNOSIDES/DOCUSATE SODIUM TAB PO SCH (21:31)
[2016-10-02] MEDS: IBUPROFEN 600 MG TAB PO PRN ×4 (01:28→19:40)
[2016-10-02] MEDS: HYDROCODONE/APAP 5/325 TAB PO PRN ×5 (03:39→23:49)
[2016-10-02] MEDS: LEVOTHYROXINE 25 MCG TAB PO SCH (06:37)
[2016-10-02] MEDS: SENNOSIDES/DOCUSATE SODIUM TAB PO SCH ×2 (07:35→22:20)
[2016-10-02] MEDS: IRON POLYSAC/IRON HEME 28 MG TAB PO SCH ×2 (07:35→22:20)
[2016-10-02] MEDS: DOCUSATE SODIUM 100 MG CAP PO SCH ×2 (09:21→22:20)
--- NOTE | 2016-10-02 11:27 | OBPP ---
Progress Note Assessment/Plan: Assessment: pod# 3 s/p PLTCS for breech breast feeding Plan: routine post care 10/02/16 11:24 Subjective: patient is doing well. didnt get much sleep last night because baby was fussy on biliblanket. pain is well controlled. passing gas. normal lochia. denies headache and changes in vision. ambulating. voiding without difficulty. denies headache and changes in vision. will go home tomorrow. Objective: 09/30/16 06:00 Patient ABO/Rh A POSITIVE 09/29/16 13:10 Temp Pulse Resp BP Pulse Ox 36.3 C 75 16 112/73 94 10/02/16 08:54 10/02/16 08:54 10/02/16 08:54 10/02/16 08:54 10/02/16 08:54 Uterine Position/Fundal Height: Umbilicus -2 Uterine Tone: Firm Physical Exam - Physical Exam General Appearance: WD/WN Neck: non-tender, full range of motion, supple, normal inspection Respiratory: chest non-tender, lungs clear, normal breath sounds Cardiac/Chest: normal peripheral pulses, regular rate, rhythm Abdomen: normal bowel sounds, non-tender, soft Extremities: normal range of motion, non-tender, normal inspection, normal capillary refill Back: Normal inspection Skin: normal color, warm/dry Neuro/Psych: no motor/sensory deficits, alert, normal mood/affect, oriented x 3
[2016-10-03] MEDS: IBUPROFEN 600 MG TAB PO PRN ×3 (01:42→14:05)
[2016-10-03] MEDS ORDERED: SUCROSE 1 EA UDL ONE (03:49)
[2016-10-03] MEDS: HYDROCODONE/APAP 5/325 TAB PO PRN ×3 (03:55→12:17)
[2016-10-03] MEDS: LEVOTHYROXINE 25 MCG TAB PO SCH (06:05)
--- NOTE | 2016-10-03 07:56 | SOAPPROG ---
SOAP Progress Note Assessment/Plan: Assessment: pod# 4 s/p PLTCS for breech breast feeding Plan: routine post care discharge instructions 10/03/16 07:54 Subjective: patient is doing well. pain is well controlled. had an incident of back pain yesterday which has improved with norco. breast feeding is going well. denies headache and changes in vision. voiding without difficulty. had a bowel movement. ready to go home. Objective: Vital Signs Temp Pulse Resp BP Pulse Ox 36.2 C 72 16 111/67 94 10/02/16 19:53 10/02/16 19:53 10/02/16 19:53 10/02/16 20:32 10/02/16 19:53 Laboratory Results 09/30/16 06:00 Physical Exam - Physical Exam General Appearance: WD/WN, alert, no apparent distress Respiratory: chest non-tender, lungs clear, normal breath sounds Cardiac/Chest: normal peripheral pulses, regular rate, rhythm Abdomen: normal bowel sounds, non-tender, soft Skin: normal color, warm/dry, other (incision clean dry and intact) Extremities: normal range of motion, non-tender, normal inspection, normal capillary refill Neuro/Psych: no motor/sensory deficits, alert, normal mood/affect, oriented x 3 ICD10 Worksheet Patient Problems: Problems Problem Status Onset Breech delivery Acute labor Acute Status post primary low transverse section Acute contractions Acute
[2016-10-03] MEDS: SENNOSIDES/DOCUSATE SODIUM TAB PO SCH (08:10)
[2016-10-03] MEDS: DOCUSATE SODIUM 100 MG CAP PO SCH (08:11)
[2016-10-03] MEDS: IRON POLYSAC/IRON HEME 28 MG TAB PO SCH (08:11)
--- NOTE | 2016-10-03 08:12 | OBGCSDC ---
General Delivery Information - General Info : 2 Para: 2 Delivery Physician/CNM: Aspen Li [place] Furnace Operator: Marissa Wynne () Admission Date: 09/29/16 Labs: Patient ABO/Rh A POSITIVE 09/29/16 13:10 Hct 32.7 % (38.0-47.0) L 09/30/16 06:00 Vaginal - Diagnosis Presentation at Delivery: Breech - Operations/Procedures L&D Analgesia/Anesthesia Type: Spinal - Delivery Number of Prior Sections: 0 Indications for Current Section: Breech Type: Primary Surgical Procedures: Unscheduled, Low Transverse Intra-op Complications: None EBL: 800 L&D Analgesia/Anesthesia Type: Spinal - Hospital Course Antepartum: hx 34 week delivery with g1. minnie injections for . labor. baby breech. active labor at 36 weeks Intrapartum: c section for breech in labor : uncomplicated post operative course Data [place] Delivery Date: 09/29/16 Delivery Time: 14:50 VICENTE: 10/23/16 Gestational Age: 37 week(s) and 1 day(s) Sex of Infant: Male [place] Weight (gm): 2744 kg Score (1 Min): 8 Score (5 Min): 9 Discharge Information - Discharge Information Condition: Good Instruction/Follow Up: Two Weeks, Four Weeks, Six Weeks Discharge Physician/CNM: Wanda Jeffrey
[2016-10-03 08:58] VITALS: PULSE 70; RESP 18; TEMP 97.8; O2SAT 95
[2016-10-03 11:05] VITALS: BP 118/80
== END 2016-10-03 15:45 | disposition home or self-care (01) | DRG 766 ==
LOC: FLD 12:20 → OBSVTOIN 12:52 → FOB 18:07
PROVIDERS: ADMIT Obstetrics & Gynecology; ATTEND Obstetrics & Gynecology
PROC: 10D00Z1 Extraction of Products of Conception, Low, Open Approach (ICD-10-PCS; principal; 2016-09-29)
DX: O60.14X0 Preterm labor third trimester with preterm delivery third trimester, not applicable or unspecified (principal); Z37.0 Single live birth; O32.8XX0 Maternal care for other malpresentation of fetus, not applicable or unspecified; Z3A.36 36 weeks gestation of pregnancy; O99.284 Endocrine, nutritional and metabolic diseases complicating childbirth; E03.9 Hypothyroidism, unspecified; O99.02 Anemia complicating childbirth; D64.9 Anemia, unspecified
CPT/HCPCS: J0690; J1100; J1885; J2370; J2405; J2590; J3010

== ENCOUNTER → 2016-12-23 | Outpatient (CLI) | payer OTHER | LOC: FIMAGING 15:14 | PROVIDERS: ATTEND Internal Medicine | DX: M79.661 Pain in right lower leg (principal); M79.89 Other specified soft tissue disorders ==